=== PATIENT | female | born 1940 | race Two or more races ===

== ENCOUNTER 2024-07-22 08:30 | Inpatient (IN) | payer OTHER ==
[~2024-07-22] VITALS: Ht 157.5 cm; Wt 88.5 kg
[2024-07-22] MEDS ORDERED: FARXIGA10 MG (10:42)
[2024-07-22] MEDS ORDERED: LOSARTAN 10 MG (10:42)
[2024-07-22] MEDS ORDERED: AMLODIPINE 2.5 MG (10:43)
[2024-07-22] MEDS ORDERED: ZETIA10 MG (10:43)
[2024-07-22] MEDS ORDERED: ATORVASTATIN CA20 MG (10:43)
[2024-07-22] MEDS ORDERED: SYNTHROID 0.1 MG (10:44)
[2024-07-22 11:01] LABS: URINE APPEARANCE Clear; URINE BILIRRUBIN Negative (NEGATIVE); URINE BLOOD Negative; URINE COLOR Yellow; URINE KETONE Negative (NEGATIVE); URINE LEUKOCYTE Negative; URINE NITRATE Negative; URINE PROTEIN Negative (NEGATIVE); URINE UROBILINOGEN 0.2 E.U./dl
[2024-07-22 11:04] LABS: URINE BACTERIA 32.7 uL (0.0-1933); URINE EPITHELIAL CELLS 4.9 uL (0.0-38.8); URINE WBC 8.1 uL (0.0-23.2)
[2024-07-22 11:07] LABS: URINE GLUCOSE >=1000 MG/DL (NEGATIVE)
[2024-07-22 11:09] LABS: HEMATOCRIT 41.1 % (36.0-45.00); HEMOGLOBIN 13.6 g/dL (12.0-15.00); MEAN CORPUSCULAR HEMOGLOBIN 31.8 pg (27.00-32.0); MEAN CORPUSCULAR HGB CONC 33.1 g/dl (32.0-36.0); PLATELET COUNT 313 K/uL (150-450); RED BLOOD COUNT 4.28 M/uL (4.00-6.00)
[2024-07-22 11:25] LABS: INR 1.05; PARTIAL THROMBOPLASTIN TIME 26.9 SECONDS (22.0-34.0); PROTHROMBIN TIME 11.4 SECONDS (9.0-11.5)
[2024-07-22 11:31] LABS: ALBUMIN 3.8 gm/dL (3.4-5.0); BILIRUBIN TOTAL 0.51 mg/dL (0.3-1.2); CALCIUM 9.7 mg/dL (8.5-10.1); CHOL HDL RATIO 1.9 (0-5.0); CREATININE SERUM 0.86 mg/dL (0.55-1.02); GFR 63.17; GLOBULINA 4.3 G/DL (2.4-3.5); POTASSIUM 4.66 mEq/L (3.5-5.1); TOTAL PROTEIN 8.1 gm/dL (6.4-8.2)
[2024-07-22 12:47] LABS: RH POSITIVE
[2024-08-02] MEDS ORDERED: POVIDONE-IODINE 118 ML BOTT TOP ONE (08:15)
[2024-08-02] MEDS ORDERED: TRANEXAMIC ACID 100MG/1ML (1000MG) AMPUL IV ONE ×2 (08:15)
[2024-08-02] MEDS ORDERED: CEFAZOLIN SODIUM 1,000 MG VIAL IV ONE (08:15)
[2024-08-02] MEDS ORDERED: VANCOMYCIN HCL 1,000 MG VIAL IR ONE (08:15)
[2024-08-02] MEDS ORDERED: KETOROLAC TROMETHAMINE 60 MG VIAL IM ONE (08:30)
[2024-08-02] MEDS ORDERED: BUPIVACAINE HCL/PF 0.25% 50 ML VIAL IJ ONE (08:30)
[2024-08-02] MEDS ORDERED: LIDOCAINE HCL 1%/EPINEPHRINE 20ML VIAL IJ ONE (08:30)
[2024-08-02] MEDS ORDERED: SODIUM CHLORIDE 0.45 % 1,000 ML IV SCH (09:30)
[2024-08-02] MEDS ORDERED: OxyCODONE HCL 5 MG TABLET (ROXICODONE) PO PRN (09:30)
[2024-08-02] MEDS ORDERED: MORPHINE SULFATE 4 MG/ML CARTRIDGE IV PRN (09:30)
[2024-08-02] MEDS ORDERED: ONDANSETRON HCL 2 MG/ML VIAL IV PRN (09:30)
[2024-08-02] MEDS ORDERED: ACETAMINOPHEN 500 MG GEL..CAP PO SCH (12:00)
[2024-08-02] MEDS ORDERED: MORPHINE SULFATE 4 MG/ML VIAL IV ONE ×2 (12:05→15:40)
[2024-08-02] MEDS ORDERED: INSULIN LISPRO 1,000 UNIT/10 ML UNITS SUBCUTANEO PRN (16:30)
[2024-08-02] MEDS ORDERED: DEXTROSE 50 % IN WATER 0.5 G/ML DISP.SYRIN IV PRN (16:30)
[2024-08-02] MEDS ORDERED: GABAPENTIN 300 MG CAPSULE PO SCH (17:00)
[2024-08-02] MEDS ORDERED: FAMOtidine 20 MG TABLET PO SCH (17:00)
[2024-08-02] MEDS ORDERED: CEFAZOLIN SODIUM 1,000 MG VIAL IV SCH (17:00)
[2024-08-03] VITALS: BP 136/62; O2SAT 95
[2024-08-03] MEDS ORDERED: LEVOTHYROXINE SODIUM 100 MCG TABLET PO SCH (06:00)
[2024-08-03] MEDS ORDERED: SENNOSIDES 1 TAB TABLET PO SCH (09:00)
[2024-08-03] MEDS ORDERED: AMLODIPINE BESYLATE 2.5 MG TABLET PO SCH (09:00)
[2024-08-03] MEDS ORDERED: APIXABAN 2.5 MG TABLET PO SCH (09:00)
[2024-08-03] MEDS ORDERED: LOSARTAN POTASSIUM 100 MG TABLET PO SCH (09:00)
[2024-08-03 09:02] LABS: HEMATOCRIT 36.1 % (36.0-45.00); HEMOGLOBIN 11.9 g/dL (12.0-15.00); MEAN CELL VOLUME 95.7 fL (80.00-100.00); MEAN CORPUSCULAR HEMOGLOBIN 31.4 pg (27.00-32.0); MEAN CORPUSCULAR HGB CONC 32.9 g/dl (32.0-36.0); PLATELET COUNT 233 K/uL (150-450); RED BLOOD COUNT 3.77 M/uL (4.00-6.00); RED CELL DISTRIBUTION WIDTH 14.8 % (11.5-14.5)
[2024-08-03 09:05] VITALS: BP 107/53; O2SAT 95
[2024-08-03] MEDS ORDERED: PERCOCET 5-3251 EACH PO (09:14)
[2024-08-03] MEDS ORDERED: DUI500 PO (09:14)
[2024-08-03] MEDS ORDERED: ELIQUIS2.5 MG PO (09:14)
[2024-08-03 16:00] VITALS: BP 133/65; O2SAT 97
[2024-08-04] VITALS: BP 119/65; O2SAT 95
[2024-08-04 06:13] LABS: HEMATOCRIT 35.2 % (36.0-45.00); HEMOGLOBIN 11.5 g/dL (12.0-15.00); MEAN CELL VOLUME 95.7 fL (80.00-100.00); MEAN CORPUSCULAR HEMOGLOBIN 31.4 pg (27.00-32.0); MEAN CORPUSCULAR HGB CONC 32.8 g/dl (32.0-36.0); PLATELET COUNT 215 K/uL (150-450); RED BLOOD COUNT 3.68 M/uL (4.00-6.00); RED CELL DISTRIBUTION WIDTH 14.5 % (11.5-14.5)
[2024-08-04 08:23] VITALS: BP 126/71; O2SAT 96
[2024-08-04] MEDS ORDERED: IRON FUM,PS/FOLIC ACID/VITC/B3 1 CAP CAPSULE PO SCH (09:00)
[2024-08-04 16:00] VITALS: BP 140/65; O2SAT 98
== END 2024-08-04 18:03 | DRG 470 ==
LOC: O/R 08-02 05:16 → SURH 08-02 08:30
PROVIDERS: ADMIT Orthopaedic Surgery; ATTEND Orthopaedic Surgery
PROC: 0MNP0ZZ Release Left Knee Bursa and Ligament, Open Approach (ICD-10-PCS; 2024-08-02)
PROC: 0SRD0J9 Replacement of Left Knee Joint with Synthetic Substitute, Cemented, Open Approach (ICD-10-PCS; principal; 2024-08-02 21:45)
DX: M17.12 Unilateral primary osteoarthritis, left knee (principal); M22.12 Recurrent subluxation of patella, left knee